=== PATIENT | female | born 1980 | race Caucasian/White ===

== ENCOUNTER 2016-10-24 20:33 | Emergency (ER) | payer BC ==
[~2016-10-24] VITALS: Ht 162.6 cm; Wt 98.9 kg
[2016-10-24 20:39] VITALS: BP_SYST 133
[2016-10-25 00:03] LABS: BASOPHILS % (AUTO) 0.5 % (0.0-2.0); EOSINOPHILS # (AUTO) 0.2 K/uL (0.0-0.4); EOSINOPHILS % (AUTO) 2.4 % (0.0-4.0); HEMATOCRIT 36.4 % (36-48); HEMOGLOBIN 12.5 g/dL (12.0-16.0); LYMPHOCYTES # (AUTO) 2.6 K/uL (1.0-5.5); LYMPHOCYTES % (AUTO) 35.2 % (20.5-51.5); MEAN CORPUSCULAR HEMOGLOBIN 29 pg (27-31); MEAN CORPUSCULAR HGB CONC 34 % (32-36); MEAN CORPUSCULAR VOLUME 84 fL (79.0-98.0); MONOCYTES # (AUTO) 0.7 K/uL (0.0-1.0); MONOCYTES % (AUTO) 8.9 % (1.7-9.3); NEUTROPHILS # (AUTO) 3.8 K/uL (1.8-7.7); PLATELET COUNT (AUTO) 202 K/uL (130-430); RED BLOOD CELL COUNT(AUTO) 4.32 MIL/uL (4.2-6.2); RED CELL DISTRIBUTION WIDTH 12.6 % (9.0-15.0); WHITE BLOOD COUNT (AUTO) 7.4 K/uL (4.8-10.8)
[2016-10-25 00:12] LABS: CALCIUM 8.3 mg/dL (8.4-11.0); CREATININE 0.76 mg/dL (0.55-1.30); POTASSIUM 3.7 mmol/L (3.5-5.1)
[2016-10-25 01:50] VITALS: BP_SYST 130
== END 2016-10-25 01:50 | disposition home or self-care (01) ==
LOC: SED 20:33
DX: R05 Cough (principal); R42 Dizziness and giddiness
CPT/HCPCS: 36415; 71010; 80048; 85025; 99285